=== PATIENT | male | born 1995 | race Caucasian/White ===

== ENCOUNTER 2017-08-01 00:28 | Emergency (ER) | payer OTHER ==
[~2017-08-01] VITALS: Ht 177.8 cm; Wt 122.7 kg
[2017-08-01 00:39] VITALS: BP 145/90; TEMP 99
[2017-08-01] MEDS ORDERED: PREDNISONE20 MG PO (00:48)
[2017-08-01 02:04] VITALS: PULSE 84
== END 2017-08-01 02:05 | disposition home or self-care (01) ==
LOC: COL.ER 00:28
DX: T78.40XA Allergy, unspecified, initial encounter (principal)
CPT/HCPCS: J1200; J2930; J7030